=== PATIENT | female | born 1990 | race Caucasian/White ===

== ENCOUNTER 2020-10-25 15:31 | Emergency (ER) | payer SELFPAY ==
[~2020-10-25] VITALS: Ht 170.2 cm; Wt 77.2 kg
[2020-10-25 15:56] VITALS: BP 191/104
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
[2020-10-25] MEDS ORDERED: HYDROcodone/APAP 5/325MG 1 TAB TABLET PO ONE (17:00)
[2020-10-25] MEDS ORDERED: CYCLOBENZAPRINE 10 MG TABLET. PO ONE (17:00)
[2020-10-25] MEDS ORDERED: predniSONE 10 MG TABLET PO ONE (17:00)
[2020-10-25] MEDS ORDERED: GABA300C18 PO (17:01)
[2020-10-25] MEDS ORDERED: METH4TAB2 PO (17:01)
[2020-10-25] MEDS ORDERED: CYCL10TA2 PO (17:01)
--- NOTE | 2020-10-25 18:19 | RAD ---
Right shoulder 2 views. HISTORY: Pain 2 views were taken of the right shoulder. There is not evidence of an acute fracture or osseous abnor mality or dislocation. IMPRESSION: 1. No acute fracture or dislocation noted in the right shoulder. Electronically signed by: Eugenio Yates MD (10/25/2020 6:12 PM) [facility]
== END 2020-10-25 17:30 | disposition home or self-care (01) ==
LOC: ER 15:31
DX: S43.401A Unspecified sprain of right shoulder joint, initial encounter (principal); F17.200 Nicotine dependence, unspecified, uncomplicated; Z88.1 Allergy status to other antibiotic agents; Z88.6 Allergy status to analgesic agent; X50.9XXA Other and unspecified overexertion or strenuous movements or postures, initial encounter; Y93.89 Activity, other specified; Y92.89 Other specified places as the place of occurrence of the external cause; Y99.8 Other external cause status
CPT/HCPCS: 73030; 99284; J7512; A4565